=== PATIENT | female | born 1980 | race African-American/Black ===

== ENCOUNTER → 2016-12-22 | Outpatient (CLI) | payer BC ==
[~2016-12-22] MED LIST: GADOBUTROL 10 MMOL/10 ML VIAL IV ONE
--- NOTE | 2016-12-22 14:23 | KCIC ---
MR PITUITARY GLAND HISTORY: Reason For Study Reason: ELEVATED PROLACTIN / Spl. 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 8cc [employer] Technique: Axial diffusion weighted imaging, axial FLAIR, and axial T2 weighted imaging was obtained through the entire brain. Additional thin cut postcontrast coronal and sagittal T1-weighted images were obtained through the pituitary gland. FINDINGS: There is a 5 millimeter focus of hypo enhancement in the right aspect of the pituitary gland best appreciated on the T2 coronal image 6 and series 15 image 5. This could represent a microadenoma. The pituitary gland is not enlarged and does not extend above the sella. The cavernous portions of the internal carotid artery maintain the normal caliber of their flow voids and are unremarkable. Meckel's cave is within normal limits bilaterally. There is no evidence of mass effect on the optic chiasm. Anterior cerebral arteries are normal in position. Sphenoid sinuses are well aerated bilaterally. No regions of abnormal signal are seen within the brain parenchyma. There is no abnormal enhancement identified. No restricted diffusion is seen to indicate an acute infarct. There is no evidence of intracranial hemorrhage. Specifically, no abnormal susceptibility is seen on gradient echo images to indicate a microhemorrhage. No extra-axial fluid collections are identified. There is no mass effect or midline shift. Ventricular size is within normal limits. Basal cisterns are patent. Flow voids are preserved at the skull base. Cerebellum and posterior fossa structures are unremarkable. Globes and orbits are within normal limits. Paranasal sinuses and mastoid air cells are clear. IMPRESSION: There is a 5 millimeter focus of hypo enhancement in the right aspect of the pituitary gland which could represent a pituitary microadenoma. Electronically signed by: Zachary Randolph (Dec 22, 2016 14:22:33)
== END | disposition home or self-care (01) ==
LOC: KCIC MRI 11:47
PROVIDERS: ATTEND Advanced Practice Midwife
DX: E22.1 Hyperprolactinemia (principal)
CPT/HCPCS: 70553; A9585